=== PATIENT | male | born 1955 | race Caucasian/White ===

== ENCOUNTER 2019-11-26 10:13 | Emergency (ER) | payer MEDICARE, SELFPAY ==
[2019-11-26] VITALS (13 sets, daily range): BP systolic 68–101; BP diastolic 49–81; PULSE 101–123; RESP 18–31; TEMP 36.7–36.8; O2SAT 97–100; BMI 19.4
--- NOTE | 2019-11-26 10:47 | PC.NURSE ---
Lab at bedside to draw blood
[2019-11-26 10:55] LABS: Basophils % 0.2 %; Eosinophils # 0.1 10^3/uL (0.0-0.8); Eosinophils % 0.6 %; Hematocrit 30.8 % (42.0-52.0); Hemoglobin 9.6 g/dL (11.7-16.6); Lymphocytes # 0.6 10^3/uL (0.8-4.8); Lymphocytes % 6.9 %; Mean Corpuscular HGB Conc 31.2 g/dL (30.0-36.0); Mean Corpuscular Hemoglobin 31.3 pg (28.0-34.0); Mean Corpuscular Volume 100.3 fL (80-94); Mean Platelet Volume 11.1 fL (7.4-10.4); Monocytes % 0.2 %; Neutrophils # 7.92 10^3/uL (1.8-7.7); Neutrophils % 91.6 %; Nucleated Red Blood Cells % 0 %; Platelet Count 198 10^3/cmm (130-400); Red Blood Count 3.07 10^6/uL (4.1-5.3); Red Cell Distribution Width 12.6 % (12.1-15.1); White Blood Count 8.7 10^3/uL (4.0-10.0)
[2019-11-26 11:19] LABS: Alanine Aminotransferase 15 U/L (0-41); Albumin Level 2.8 g/dL (3.5-5.2); Alkaline Phosphatase 74 IU/L (40-130); Aspartate Amino Transferase 21 U/L (0-40); Blood Urea Nitrogen 18 mg/dL (8-23); Calcium 7.8 mg/dL (8.5-10.5); Carbon Dioxide 24 mmol/L (22-29); Chloride 102 mmol/L (98-107); Globulin 2.1 g/dL (1.3-4.6); Glomerular Filtration Rate 113.5 mL/min (90-130); Glucose 235 mg/dL (65-115); Lipase 5 U/L (13-60); Osmolality Calculated 280 mOsm/kg (285-295); Sodium 133 mmol/L (136-145); Total Bilirubin 0.8 mg/dL (0.15-1.2); Total Protein 4.9 g/dL (6.6-8.7)
[2019-11-26 11:20] LABS: Lactic Sepsis W/Reflex 2.7 mmol/L (0.5-2.2)
--- NOTE | 2019-11-26 11:22 | PC.NURSE ---
At 1111, rounded on pt, pt was sitting up in bed, stated he felt dizzy and nauseated. Left room to tell Dr Maldonado and immediately the call light was on with pt ashlyn. Pt had a fixed gaze, pulse present and pt was breathing, BP re-cycled and showed 49/36, HR 106, RR 18 and agonal, 100% on RA. Pt was laid supine in Trendelenburg, IV opened wide, Dr Lima at bedside (1112). 18G IV placed to right AC, 16G to right upper arm, 2nd liter of NS hung to right upper arm. Pt aroused enough by verbal stimuli at this point (1117), BP 74/56, HR 105, RR 22, 99% on room air. VS at 1121: BP 84/60, HR 108, RR 28, 100% on room air. VS at 1125: BP 97/64, HR 107, RR 20, 100% RA. Pt reports he feels like he is going to throw up.
--- NOTE | 2019-11-26 11:30 | PC.NURSE ---
Pt vomiting copious amount of blood.
[2019-11-26] MEDS: ondansetron 2 mg/ML SDV 2 mL 4 MG IVP (11:32)
[2019-11-26 11:34] LABS: Anion Gap 11.9 (5-19); Potassium 4.9 mmol/L (3.5-5.1)
--- NOTE | 2019-11-26 11:36 | PC.NURSE ---
Dr Maldonado at bedside
[2019-11-26] MEDS: sodium chloride 0.9% 1,000 ML 999 ML IV ×2 (11:41→12:13)
[2019-11-26] MEDS: pantoprazole 40 MG in sodium chloride 0.9% (plus) 100 ML 20 MG IV (11:50)
[2019-11-26] MEDS: pantoprazole 40 mg SDV 80 MG IVP (11:50)
[2019-11-26] MEDS: metoclopramide 5 mg/mL SDV 2 mL IVP (11:51)
--- NOTE | 2019-11-26 11:57 | PC.NURSE ---
Lab at bedside to draw blood. Pt has had numerous episodes of vomiting, continues to lay on his left side d/t nausea. Pt has vomited approx 3 cups of dark red blood. Pt states his abdomen hurts and he is nauseated.
--- NOTE | 2019-11-26 12:08 | ED_ITS ---
HPI - GI Bleed General: Chief complaint: GI Bleed Stated complaint: VOMITING BLOOD Time Seen by Provider: 11/26/19 10:16 History of Present Illness: HPI Narrative: This patient is a 64-year-old gentleman who presents with vomiting blood. He reports he got up this morning and threw up about a cupful of bright red blood. He is feeling very lightheaded. He comes in with his . He has a history of pancreatic cancer and has had chemotherapy and radiation. He has never had any surgery. He does have what sounds like a bile duct stent that was placed or at least followed at [place]. He has been treated by GI and oncology at [facility]. He has never been to that he was anemic in the past. He has never had any problems like this. He had a endoscopy fairly recently for evaluation of the stent. He has never heard the term esophageal varices or been told that he had any dilated blood vessels in his esophagus. His , however, says that they told him he had some collateral blood vessels around his liver. He is never had GI bleeding before. MD complaint: gross hematemesis Onset (ago): hour(s) (1) Pain Consistency: constant Relieving factors: none Exacerbating factors: none Context: liver disease Associated symptoms: Reports easy bruising, malaise, nausea and syncope; Denies chills, fever(s), headache(s) or rash Review of Systems General: Reports: 10 or more systems reviewed and unremarkable except in HPI and below Const: Reports: change in weight (Over 100 pounds weight loss since his diagnosis) and malaise; Denies: fever(s), chills or fatigue Eyes: Denies: change in vision ENMT: Denies: odynophagia Card: Reports: syncope Resp: Denies: dyspnea, productive cough or non-productive cough GI: Reports: nausea : Denies: flank pain Musc: Denies: neck pain or back pain Skin/Breast: Denies: rash Neuro: Denies: headache(s), numbness in extremities or weakness in extremities Elier/Lymph: Reports: easy bruising Physical Exam Const: COMMON NORMALS: patient oriented x3, no limitations and alert GENERAL APPEARANCE: cooperative NUTRITIONAL APPEARANCE: thin HENMT: HEAD & SCALP: normal to inspection FACE & SINUS: normal facial exam Eye: GENERAL EYE: appearance normal, both eyes and all related structures Neck/C-Spine: COMMON NORMALS: supple, no meningeal signs and no JVD Chest: COMMONS NORMALS: normal inspection of the chest Resp: COMMON NORMALS: normal respiratory effort, No use of accessory muscles and clear to auscultation bilaterally AUSCULTATION: clear to auscultation bilaterally Cardio: COMMON NORMALS: no JVD, regular rate, regular rhythm and No murmurs present (Cardio) RATE: regular rate RHYTHM: regular rhythm GI: COMMON NORMALS: Normal to inspection, nondistended, normoactive bowel sounds present and Soft to palpation INSPECTION: Yes normal to inspection AUSCULTATION: Yes normoactive bowel sounds PALPATION: Yes Soft to palpation Back/Pelvis: COMMON NORMALS: thoracic and lumbar spine normal to inspection Extremity: COMMON NORMALS: normal to inspection Neuro: COMMON NORMALS: patient oriented x3, moves all extremities, no focal motor deficits and no sensory deficits noted SENSORIUM/ORIENTATION: Yes alert MENINGEAL SIGNS: Yes no meningeal signs Psych: COMMON NORMALS: mental status grossly normal, cooperative and normal affect Skin: COMMON NORMALS: no rashes or lesions noted and turgor normal GENERAL SKIN EXAM: no rashes or lesions noted and turgor normal Course ED course: This patient with a history of pancreatic cancer presents with vomiting blood. He is hypotensive and tachycardic. He has had 2 episodes now of vomiting bright red blood. Blood was typed and crossmatched and is being administered. His care has been through [facility] or [place]. I am going to arrange for transport to [facility] for GI consult by helicopter if possible. Also started Protonix. He has had 2 L of fluid. His INR is 1.30. Hemoglobin is 9.6. The rest of his electrolytes are relatively normal. His albumin is only 2.8. Reevaluation(s): Reevaluation #1: Blood is transfusing. Heart rate is down to 110. Blood pressures are bouncing between 70 and 80 systolic. He is complaining of abdominal pain and was given 25 mics of fentanyl. Vital Signs: Vital signs: Vital Signs Temperature 98.3 F 11/26/19 12:31 Pulse Rate 109 H 11/26/19 13:33 Respiratory Rate 21 H 11/26/19 13:33 Blood Pressure 79/58 11/26/19 13:33 Pulse Oximetry 100 11/26/19 13:33 MDM - GI Bleed MDM Narrative: Medical decision making narrative: GI bleeding, upper. Esophageal varices versus ulcer. Less likely Zainab-Gaytan tear. Heart rate elevated and blood pressure low. Had a syncopal episode in the ED with trying to get up. Lab Data: Labs: Lab Results 11/26/19 11/26/19 11/26/19 Range/Units 10:45 10:45 10:45 WBC 8.7 (4.0-10.0) 10^3/ uL RBC 3.07 L (4.1-5.3) 10^6/u L Hgb 9.6 L (11.7-16.6) g/dL Hct 30.8 L (42.0-52.0) % MCV 100.3 H (80-94) fL MCH 31.3 (28.0-34.0) pg MCHC 31.2 (30.0-36.0) g/dL RDW 12.6 (12.1-15.1) % Plt Count 198 (130-400) 10^3/c mm MPV 11.1 H (7.4-10.4) fL Neut % (Auto) 91.6 % Lymph % (Auto) 6.9 % [facility] % (Auto) 0.2 % Eos % (Auto) 0.6 % Baso % (Auto) 0.2 % Neut # (Auto) 7.92 H (1.8-7.7) 10^3/u L Lymph # (Auto) 0.6 L (0.8-4.8) 10^3/u L [facility] # (Auto) 0.0 L (0.2-0.9) 10^3/u L Eos # (Auto) 0.1 (0.0-0.8) 10^3/u L Baso # (Auto) 0.0 (0.0-0.1) 10^3/u L Nucleated RBC % (a uto) 0 % Nucleated RBCs # 0.0 /100WBC PT 16.70 H (12.1-14.9) SECO NDS INR 1.30 H (0.8-1.2) Sodium 133 L (136-145) mmol/L Potassium 4.9 (3.5-5.1) mmol/L Chloride 102 (98-107) mmol/L Carbon Dioxide 24 (22-29) mmol/L Anion Gap 11.9 (5-19) BUN 18 (8-23) mg/dL Creatinine 0.7 (0.7-1.2) mg/dL GFR Calculation 113.5 (90-130) mL/min Glucose 235 H (65-115) mg/dL Calculated Osmolal ity 280 L (285-295) mOsm/k g Lactic Acid (0.5-2.2) mmol/L Calcium 7.8 L (8.5-10.5) mg/dL Total Bilirubin 0.8 (0.15-1.2) mg/dL AST 21 (0-40) U/L ALT 15 (0-41) U/L Alkaline Phosphata se 74 (40-130) IU/L Total Protein 4.9 L (6.6-8.7) g/dL Albumin 2.8 L (3.5-5.2) g/dL Globulin 2.1 (1.3-4.6) g/dL Lipase 5 L (13-60) U/L Blood Type Rho(D) Type Antibody Screen Crossmatch 11/26/19 11/26/19 Range/Units 10:45 10:45 WBC (4.0-10.0) 10^3/ uL RBC (4.1-5.3) 10^6/u L Hgb (11.7-16.6) g/dL Hct (42.0-52.0) % MCV (80-94) fL MCH (28.0-34.0) pg MCHC (30.0-36.0) g/dL RDW (12.1-15.1) % Plt Count (130-400) 10^3/c mm MPV (7.4-10.4) fL Neut % (Auto) % Lymph % (Auto) % [facility] % (Auto) % Eos % (Auto) % Baso % (Auto) % Neut # (Auto) (1.8-7.7) 10^3/u L Lymph # (Auto) (0.8-4.8) 10^3/u L [facility] # (Auto) (0.2-0.9) 10^3/u L Eos # (Auto) (0.0-0.8) 10^3/u L Baso # (Auto) (0.0-0.1) 10^3/u L Nucleated RBC % (a uto) % Nucleated RBCs # /100WBC PT (12.1-14.9) SECO NDS INR (0.8-1.2) Sodium (136-145) mmol/L Potassium (3.5-5.1) mmol/L Chloride (98-107) mmol/L Carbon Dioxide (22-29) mmol/L Anion Gap (5-19) BUN (8-23) mg/dL Creatinine (0.7-1.2) mg/dL GFR Calculation (90-130) mL/min Glucose (65-115) mg/dL Calculated Osmolal ity (285-295) mOsm/k g Lactic Acid 2.7 H (0.5-2.2) mmol/L Calcium (8.5-10.5) mg/dL Total Bilirubin (0.15-1.2) mg/dL AST (0-40) U/L ALT (0-41) U/L Alkaline Phosphata se (40-130) IU/L Total Protein (6.6-8.7) g/dL Albumin (3.5-5.2) g/dL Globulin (1.3-4.6) g/dL Lipase (13-60) U/L Blood Type AB Positive Rho(D) Type Positive Antibody Screen Negative Crossmatch See Detail Discharge Plan Discharge Prescriptions: No Action ondansetron HCl 8 mg tablet 8 mg PO Q12H PRN (Reason: Nausea) RF: 0 prochlorperazine maleate 10 mg tablet 10 mg PO Q6H PRN (Reason: Nausea) RF: 0 omeprazole 40 mg capsule,delayed release(DR/EC) 40 mg PO DAILY RF: 0 Tylenol Extra Strength 500 mg Tablet 500 mg PO BID RF: 0 spironolactone 25 mg tablet 25 mg PO DAILY RF: 0 dronabinol 2.5 mg capsule 2.5 mg PO BID RF: 0 Creon 6,000-19,000 -30,000 unit capsule,delayed release(DR/EC) See Rx Instructions .ROUTE .COMPLEX RF: 0 Referrals: Urszula Lainez DO [Primary Care Provider] - Discharge Date/Time: 11/26/19 13:40 Coding Level of Care Code ED Moss Bleacher for Chg Fwd Exam Comprehensive
--- NOTE | 2019-11-26 12:09 | PC.NURSE ---
Report given to LUCIAN Jovel at bedside.
[2019-11-26] MEDS: fentaNYL 50 mcg/mL INJ 2mL 25 MCG IVP (12:44)
--- NOTE | 2019-11-26 13:22 | ECG_ITS ---
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 Measurements Intervals [place] Rate: 98 P: 264 TN: 154 QRS: 27 QRSD: 96 T: 55 QT: 360 QTc: 462 Interpretive Statements SINUS RHYTHM Some nonspecific T wave change PROBABLE INFERIOR MYOCARDIAL INFARCTION , PROBABLY OLD [35 ms Q WAVE IN II/aVF] No previous ECG available for comparison Electronically Signed On 11-27-2019 0:17:54 CDT by Alda Martell M.D. [id number]
== END 2019-11-26 13:40 ==
LOC: ER 10:35
PROVIDERS: Emergency Provider Emergency Medicine; PCP Family Medicine
DX: K92.0 Hematemesis (principal)
CPT/HCPCS: 12345; 36415; 36430; 80053; 83605; 83690; 85025; 85610; 86850; 86900; 86920; 93005; 96365; 96366; 96375; 99283; 99285; C9113; J2405; J2765; J3010; J7030; P9016